=== PATIENT | male | born 1940 | race Caucasian/White ===

== ENCOUNTER 2022-06-05 14:54 | Inpatient (IN) ==
[2022-06-05 15:19] LABS: Basophils % 0.1 % (0.0-0.8); Hematocrit 33.9 VOL% (42.0-52.0); Hemoglobin 11.6 GM/DL (14.0-18.0); Immature Granulocytes % 0.6 %; Immature Granulocytes Absolute 0.06 #; Lymphocytes # 1.1 10*3/uL (1.4-4.0); Lymphocytes % 10.4 % (21.2-54.2); Mean Corpuscular HGB Conc 34.2 GM/DL (32-36); Mean Corpuscular Volume 88.1 FL (87-102); Mean Platelet Volume 10.1 FL (9.6-12.0); Monocytes # 0.7 10*3/uL (0.11-0.8); Monocytes % 6.6 % (1.7-12.7); Neutrophils % 82.3 % (38.7-73.9); Platelet Count 249 T/CUMM (130-400); Red Blood Count 3.85 MC/CUMM (3.8-5.5); Red Cell Distribution Width 15.3 % (9.3-17.3); White Blood Count 10.2 T/CUMM (4-12)
[2022-06-05 15:33] LABS: INR 1.1; PT Patient Result 12.3 SECS (10.5-12.0); Partial Thromboplastin Time 35.7 SECS (23.7-32.9)
[2022-06-05] MEDS ORDERED: SODIUM CHLORIDE 0.9% 1,000 ML IV STA (15:42)
[2022-06-05 15:56] LABS: Albumin 2.8 G/DL (3.4-5.0); Bilirubin,Total 0.7 MG/DL (0.20-1.00); Calcium 8.5 MG/DL (8.5-10.1); Osmolality,Calculated 292.1 MOS/KG (273-304); Potassium 2.7 MMOL/L (3.5-5.1); Total Protein 6.3 G/DL (6.4-8.2)
[2022-06-05 16:08] LABS: Glucose,Urine (UA) Negative (Negative); Ketones,Urine Negative (Negative); Nitrite,Urine Positive (Negative); Protein,Urine 30 mg/dL (Negative); Urine Appearance Slightly Cloudy (Clear); Urine Color Yellow (Yellow)
[2022-06-05 16:09] LABS: Bilirubin,Urine Negative (Negative); Blood, Urine Moderate mg/dL (Negative); Urine Urobilinogen 0.2 eU/dL (<2.0)
[2022-06-05 16:15] LABS: Bacteria,Urine Many /HPF (Few); Mucus,Urine Occasional /LPF (Occasional); RBC,Urine 27 /HPF (0-4); Renal Epithelial Cells,Urine Occasional /HPF (<1)
[2022-06-05 16:18] LABS: Urine Specific Gravity > 1.030 (1.001-1.035)
[2022-06-05] MEDS ORDERED: POTASSIUM CHLORIDE 20 MEQ TABLET PO STA (16:35)
[2022-06-05] MEDS ORDERED: cefTRIAXone 1,000 MG in SODIUM CHLORIDE 0.9% 100 ML IV STA (16:37)
[2022-06-05 16:48] LABS: Barbiturates Screen,Urine Negative (Negative); Benzodiazepines Screen,Urine Negative (Negative); Cannabinoid Screen,Urine Negative (Negative); Opiate Screen,Urine Positive (Negative); Phencyclidine Screen,Urine Negative (Negative)
[2022-06-05] MEDS ORDERED: SIMETHICONE CHEW 125 MG TABLET PO PRN (17:21)
[2022-06-05] MEDS ORDERED: CALCIUM CARBONATE CHEW 500 MG TABLET PO PRN (17:21)
[2022-06-05] MEDS ORDERED: ALUMINUM/MAGNES/SIMETH MAX STR 30 ML UDCUP PO PRN (17:21)
[2022-06-05] MEDS ORDERED: LACTULOSE 20 GM/30 ML UDCUP PO PRN (17:21)
[2022-06-05] MEDS ORDERED: ONDANSETRON 4 MG/2 ML VIAL IV PRN (17:21)
[2022-06-05] MEDS ORDERED: ALBUTEROL 2.5 MG/3 ML NEB RESP TX PRN (17:21)
[2022-06-05] MEDS ORDERED: GLUCAGON 1 MG VIAL IM PRN (17:21)
[2022-06-05] MEDS ORDERED: MAGNESIUM SULF RIDER 2 GM/50 ML PREMIX IV PRN (17:29)
[2022-06-05] MEDS ORDERED: MAGNESIUM SULF RIDER 4 GM/100 ML PREMIX IV PRN (17:29)
[2022-06-05] MEDS ORDERED: DEXTROSE 10% 250 ML BAG IV PRN (17:30)
[2022-06-05] MEDS: SODIUM CHLOR 0.9% KCL 40 MEQ 40 MEQ/1,000 ML BAG IV SCH (18:47)
[2022-06-05] MEDS: ACETAMINOPHEN 325 MG TABLET PO PRN (19:49)
[2022-06-05] MEDS: TAMSULOSIN 0.4 MG CAPSULE PO SCH (21:56)
[2022-06-06] MEDS: SODIUM CHLOR 0.9% KCL 40 MEQ 40 MEQ/1,000 ML BAG IV SCH (02:47)
[2022-06-06] MEDS: ACETAMINOPHEN 325 MG TABLET PO PRN ×3 (02:50→20:31)
[2022-06-06 03:21] LABS: Basophils % 0.2 % (0.0-0.8); Eosinophils % 0.3 % (0.00-10.9); Hematocrit 33.5 VOL% (42.0-52.0); Hemoglobin 10.9 GM/DL (14.0-18.0); Immature Granulocytes % 0.3 %; Immature Granulocytes Absolute 0.04 #; Lymphocytes # 1.7 10*3/uL (1.4-4.0); Lymphocytes % 14.7 % (21.2-54.2); Mean Corpuscular HGB Conc 32.5 GM/DL (32-36); Mean Platelet Volume 10.1 FL (9.6-12.0); Monocytes # 0.7 10*3/uL (0.11-0.8); Monocytes % 6.1 % (1.7-12.7); Neutrophils % 78.4 % (38.7-73.9); Platelet Count 208 T/CUMM (130-400); Red Blood Count 3.64 MC/CUMM (3.8-5.5); Red Cell Distribution Width 15.6 % (9.3-17.3); White Blood Count 11.8 T/CUMM (4-12)
[2022-06-06 03:50] LABS: CKMB % 1.03 %
[2022-06-06 03:54] LABS: Calcium 8.2 MG/DL (8.5-10.1); Osmolality,Calculated 295.6 MOS/KG (273-304); Potassium 3.8 MMOL/L (3.5-5.1); Risk Ratio 3.96; Thyroid Stimulating Hormone 0.922 uIU/ml (0.358-3.74); VLDL Cholesterol 23.8 MG/DL
[2022-06-06] MEDS ORDERED: ENOXAPARIN 40 MG/0.4 ML SYRINGE SUBCUT SCH (08:00)
[2022-06-06] MEDS: allopurinoL 100 MG TABLET PO SCH (10:07)
[2022-06-06] MEDS: CETIRIZINE 10 MG TABLET PO SCH (10:07)
[2022-06-06] MEDS: ZINC GLUCONATE 50 MG TABLET PO SCH (10:07)
[2022-06-06] MEDS: carvediloL 3.125 MG TABLET PO SCH ×2 (10:07→17:09)
[2022-06-06] MEDS: PANTOPRAZOLE 40 MG TABLET PO SCH (10:07)
[2022-06-06] MEDS: DILTIAZEM CD 120 MG CAPSULE PO SCH (10:08)
[2022-06-06] MEDS: ASCORBIC ACID 500 MG TABLET PO SCH ×2 (10:08→20:32)
[2022-06-06] MEDS: CHOLECALCIFEROL 1,000 UNIT TABLET PO SCH (10:08)
[2022-06-06] MEDS: APIXABAN 5 MG TABLET PO SCH ×2 (12:41→20:32)
[2022-06-06] MEDS: DEXAMETHASONE 4 MG/1 ML VIAL IV SCH (12:43)
[2022-06-06] MEDS ORDERED: REMDESIVIR 200 MG in SODIUM CHLORIDE 0.9% 210 ML IV ONE (13:00)
[2022-06-06] MEDS: LACTATED RINGERS 1,000 ML IV SCH (13:11)
[2022-06-06] MEDS: cefTRIAXone 1,000 MG in SODIUM CHLORIDE 0.9% 100 ML IV SCH (17:09)
[2022-06-06] MEDS: TAMSULOSIN 0.4 MG CAPSULE PO SCH (20:32)
[2022-06-07 05:44] LABS: Basophils % 0.1 % (0.0-0.8); Hemoglobin 11.2 GM/DL (14.0-18.0); Immature Granulocytes % 0.5 %; Immature Granulocytes Absolute 0.05 #; Lymphocytes # 1.2 10*3/uL (1.4-4.0); Lymphocytes % 10.6 % (21.2-54.2); Mean Corpuscular HGB Conc 32.9 GM/DL (32-36); Mean Corpuscular Volume 91.2 FL (87-102); Mean Platelet Volume 10.4 FL (9.6-12.0); Monocytes # 0.4 10*3/uL (0.11-0.8); Monocytes % 3.5 % (1.7-12.7); Neutrophils % 85.3 % (38.7-73.9); Platelet Count 197 T/CUMM (130-400); Red Blood Count 3.73 MC/CUMM (3.8-5.5); Red Cell Distribution Width 15.8 % (9.3-17.3); White Blood Count 11.1 T/CUMM (4-12)
[2022-06-07 07:11] LABS: Calcium 8.3 MG/DL (8.5-10.1); Potassium 3.9 MMOL/L (3.5-5.1)
[2022-06-07] MEDS: DEXAMETHASONE 4 MG/1 ML VIAL IV SCH (09:07)
[2022-06-07] MEDS: ZINC GLUCONATE 50 MG TABLET PO SCH (09:08)
[2022-06-07] MEDS: allopurinoL 100 MG TABLET PO SCH (09:08)
[2022-06-07] MEDS: DILTIAZEM CD 120 MG CAPSULE PO SCH (09:09)
[2022-06-07] MEDS: CHOLECALCIFEROL 1,000 UNIT TABLET PO SCH (09:10)
[2022-06-07] MEDS: PANTOPRAZOLE 40 MG TABLET PO SCH (09:11)
[2022-06-07] MEDS: carvediloL 3.125 MG TABLET PO SCH ×2 (09:11→17:15)
[2022-06-07] MEDS: APIXABAN 5 MG TABLET PO SCH ×2 (09:11→22:03)
[2022-06-07] MEDS: CETIRIZINE 10 MG TABLET PO SCH (09:12)
[2022-06-07] MEDS: ACETAMINOPHEN 325 MG TABLET PO PRN ×2 (09:24→22:03)
[2022-06-07] MEDS: ASCORBIC ACID 500 MG TABLET PO SCH ×2 (10:05→22:04)
[2022-06-07] MEDS: LACTATED RINGERS 1,000 ML IV SCH (10:05)
[2022-06-07] MEDS: REMDESIVIR 100 MG in SODIUM CHLORIDE 0.9% 100 ML IV SCH (14:05)
[2022-06-07] MEDS: AZITHROMYCIN 250 MG TABLET PO SCH (15:39)
[2022-06-07] MEDS: VANCOMYCIN INJ 1,000 MG in SODIUM CHLORIDE 0.9% 250 ML IV SCH (17:15)
[2022-06-07] MEDS: cefTRIAXone 1,000 MG in SODIUM CHLORIDE 0.9% 100 ML IV SCH (18:20)
[2022-06-07] MEDS: TAMSULOSIN 0.4 MG CAPSULE PO SCH (22:03)
[2022-06-08 06:55] LABS: Basophils % 0.1 % (0.0-0.8); Hematocrit 32.6 VOL% (42.0-52.0); Hemoglobin 10.7 GM/DL (14.0-18.0); Immature Granulocytes % 0.8 %; Immature Granulocytes Absolute 0.07 #; Lymphocytes # 1.1 10*3/uL (1.4-4.0); Lymphocytes % 11.9 % (21.2-54.2); Mean Corpuscular HGB Conc 32.8 GM/DL (32-36); Mean Corpuscular Volume 91.1 FL (87-102); Mean Platelet Volume 10.9 FL (9.6-12.0); Monocytes # 0.3 10*3/uL (0.11-0.8); Monocytes % 3.7 % (1.7-12.7); Neutrophils % 83.5 % (38.7-73.9); Platelet Count 221 T/CUMM (130-400); Red Blood Count 3.58 MC/CUMM (3.8-5.5); White Blood Count 9.2 T/CUMM (4-12)
[2022-06-08 07:30] LABS: Calcium 8.4 MG/DL (8.5-10.1); Osmolality,Calculated 284.4 MOS/KG (273-304); Potassium 3.9 MMOL/L (3.5-5.1)
[2022-06-08] MEDS: CETIRIZINE 10 MG TABLET PO SCH (08:08)
[2022-06-08] MEDS: DILTIAZEM CD 120 MG CAPSULE PO SCH (08:08)
[2022-06-08] MEDS: AZITHROMYCIN 250 MG TABLET PO SCH (08:08)
[2022-06-08] MEDS: ZINC GLUCONATE 50 MG TABLET PO SCH (08:08)
[2022-06-08] MEDS: CHOLECALCIFEROL 1,000 UNIT TABLET PO SCH (08:08)
[2022-06-08] MEDS: APIXABAN 5 MG TABLET PO SCH ×2 (08:08→21:18)
[2022-06-08] MEDS: carvediloL 3.125 MG TABLET PO SCH ×2 (08:09→17:30)
[2022-06-08] MEDS: ASCORBIC ACID 500 MG TABLET PO SCH ×2 (08:09→21:17)
[2022-06-08] MEDS: DEXAMETHASONE 4 MG/1 ML VIAL IV SCH (08:09)
[2022-06-08] MEDS: PANTOPRAZOLE 40 MG TABLET PO SCH (08:09)
[2022-06-08] MEDS: allopurinoL 100 MG TABLET PO SCH (08:09)
[2022-06-08] MEDS: VANCOMYCIN INJ 1,000 MG in SODIUM CHLORIDE 0.9% 250 ML IV SCH (11:14)
[2022-06-08] MEDS: REMDESIVIR 100 MG in SODIUM CHLORIDE 0.9% 100 ML IV SCH (13:52)
[2022-06-08] MEDS: NICOTINE 14 MG/24 HR PATCH TRANSDERM SCH (14:12)
[2022-06-08 15:08] LABS: Folate 12.97 NG/ML (5.38-24.0)
[2022-06-08 16:22] LABS: % Iron Saturation 16.9 % (18-50)
[2022-06-08] MEDS: cefTRIAXone 1,000 MG in SODIUM CHLORIDE 0.9% 100 ML IV SCH (17:31)
[2022-06-08] MEDS: TAMSULOSIN 0.4 MG CAPSULE PO SCH (21:17)
[2022-06-08] MEDS: ZALEPLON 5 MG CAPSULE PO PRN (22:24)
[2022-06-09] MEDS: VANCOMYCIN INJ 1,000 MG in SODIUM CHLORIDE 0.9% 250 ML IV SCH ×2 (03:00→21:59)
[2022-06-09 05:32] LABS: Basophils % 0.1 % (0.0-0.8); Hematocrit 32.9 VOL% (42.0-52.0); Hemoglobin 10.9 GM/DL (14.0-18.0); Immature Granulocytes % 1.4 %; Lymphocytes % 14.3 % (21.2-54.2); Mean Corpuscular HGB Conc 33.1 GM/DL (32-36); Mean Corpuscular Volume 89.9 FL (87-102); Mean Platelet Volume 10.5 FL (9.6-12.0); Monocytes # 0.3 10*3/uL (0.11-0.8); Monocytes % 4.7 % (1.7-12.7); Neutrophils % 79.5 % (38.7-73.9); Platelet Count 243 T/CUMM (130-400); Red Blood Count 3.66 MC/CUMM (3.8-5.5); Red Cell Distribution Width 16.1 % (9.3-17.3)
[2022-06-09 05:46] LABS: Calcium 8.3 MG/DL (8.5-10.1); Osmolality,Calculated 285.5 MOS/KG (273-304); Potassium 3.9 MMOL/L (3.5-5.1)
[2022-06-09 05:55] LABS: Lymphocytes 13 % (20-55); Platelet Estimate Adequate; Total Cells Counted 100
[2022-06-09] MEDS: CHOLECALCIFEROL 1,000 UNIT TABLET PO SCH (09:20)
[2022-06-09] MEDS: carvediloL 3.125 MG TABLET PO SCH ×2 (09:21→18:02)
[2022-06-09] MEDS: ASCORBIC ACID 500 MG TABLET PO SCH ×2 (09:21→20:39)
[2022-06-09] MEDS: CETIRIZINE 10 MG TABLET PO SCH (09:21)
[2022-06-09] MEDS: allopurinoL 100 MG TABLET PO SCH (09:21)
[2022-06-09] MEDS: APIXABAN 5 MG TABLET PO SCH ×2 (09:21→20:39)
[2022-06-09] MEDS: DEXAMETHASONE 4 MG/1 ML VIAL IV SCH (09:22)
[2022-06-09] MEDS: PANTOPRAZOLE 40 MG TABLET PO SCH (09:22)
[2022-06-09] MEDS: AZITHROMYCIN 250 MG TABLET PO SCH (09:22)
[2022-06-09] MEDS: DILTIAZEM CD 120 MG CAPSULE PO SCH (09:22)
[2022-06-09] MEDS: ZINC GLUCONATE 50 MG TABLET PO SCH (09:22)
[2022-06-09] MEDS: NICOTINE 14 MG/24 HR PATCH TRANSDERM SCH (09:26)
[2022-06-09] MEDS ORDERED: MAGNESIUM SULF RIDER 2 GM/50 ML PREMIX IV ONE (14:33)
[2022-06-09] MEDS: cefTRIAXone 1,000 MG in SODIUM CHLORIDE 0.9% 100 ML IV SCH (18:03)
[2022-06-09] MEDS: TAMSULOSIN 0.4 MG CAPSULE PO SCH (20:39)
[2022-06-09] MEDS: ZALEPLON 5 MG CAPSULE PO PRN (20:39)
[2022-06-10 05:18] LABS: Hematocrit 33.2 VOL% (42.0-52.0); Hemoglobin 10.8 GM/DL (14.0-18.0); Immature Granulocytes % 2.5 %; Immature Granulocytes Absolute 0.15 #; Lymphocytes % 16.3 % (21.2-54.2); Mean Corpuscular HGB Conc 32.5 GM/DL (32-36); Mean Corpuscular Volume 90.7 FL (87-102); Mean Platelet Volume 10.8 FL (9.6-12.0); Monocytes # 0.3 10*3/uL (0.11-0.8); Monocytes % 5.3 % (1.7-12.7); Neutrophils % 75.9 % (38.7-73.9); Platelet Count 255 T/CUMM (130-400); Red Blood Count 3.66 MC/CUMM (3.8-5.5); Red Cell Distribution Width 16.1 % (9.3-17.3); White Blood Count 5.9 T/CUMM (4-12)
[2022-06-10 05:32] LABS: Calcium 8.2 MG/DL (8.5-10.1); Osmolality,Calculated 287.3 MOS/KG (273-304); Potassium 3.8 MMOL/L (3.5-5.1)
[2022-06-10] MEDS ORDERED: VANCOMYCIN INJ 1,000 MG in SODIUM CHLORIDE 0.9% 250 ML IV SCH (09:00)
[2022-06-10] MEDS: APIXABAN 5 MG TABLET PO SCH ×2 (09:08→21:46)
[2022-06-10] MEDS: ASCORBIC ACID 500 MG TABLET PO SCH ×2 (09:09→21:46)
[2022-06-10] MEDS: allopurinoL 100 MG TABLET PO SCH (09:09)
[2022-06-10] MEDS: CHOLECALCIFEROL 1,000 UNIT TABLET PO SCH (09:09)
[2022-06-10] MEDS: carvediloL 3.125 MG TABLET PO SCH ×2 (09:09→17:34)
[2022-06-10] MEDS: CETIRIZINE 10 MG TABLET PO SCH (09:09)
[2022-06-10] MEDS: AZITHROMYCIN 250 MG TABLET PO SCH (09:09)
[2022-06-10] MEDS: PANTOPRAZOLE 40 MG TABLET PO SCH (09:09)
[2022-06-10] MEDS: DILTIAZEM CD 120 MG CAPSULE PO SCH (09:10)
[2022-06-10] MEDS: ZINC GLUCONATE 50 MG TABLET PO SCH (09:10)
[2022-06-10] MEDS: DEXAMETHASONE 4 MG/1 ML VIAL IV SCH (09:10)
[2022-06-10] MEDS: NICOTINE 14 MG/24 HR PATCH TRANSDERM SCH (09:11)
[2022-06-10] MEDS: cefTRIAXone 1,000 MG in SODIUM CHLORIDE 0.9% 100 ML IV SCH (17:33)
[2022-06-10] MEDS: ZALEPLON 5 MG CAPSULE PO PRN (21:46)
[2022-06-10] MEDS: TAMSULOSIN 0.4 MG CAPSULE PO SCH (21:46)
[2022-06-11 06:12] LABS: Basophils % 0.2 % (0.0-0.8); Hematocrit 34.4 VOL% (42.0-52.0); Hemoglobin 11.2 GM/DL (14.0-18.0); Immature Granulocytes % 3.2 %; Immature Granulocytes Absolute 0.21 #; Lymphocytes % 15.3 % (21.2-54.2); Mean Corpuscular HGB Conc 32.6 GM/DL (32-36); Mean Corpuscular Volume 90.1 FL (87-102); Mean Platelet Volume 10.7 FL (9.6-12.0); Monocytes # 0.4 10*3/uL (0.11-0.8); Monocytes % 6.2 % (1.7-12.7); NRBC # 0.02 10*3/uL; Neutrophils % 75.1 % (38.7-73.9); Platelet Count 271 T/CUMM (130-400); Red Blood Count 3.82 MC/CUMM (3.8-5.5); Red Cell Distribution Width 15.9 % (9.3-17.3); White Blood Count 6.6 T/CUMM (4-12)
[2022-06-11 06:26] LABS: Calcium 8.5 MG/DL (8.5-10.1); Osmolality,Calculated 290.3 MOS/KG (273-304); Potassium 3.5 MMOL/L (3.5-5.1)
[2022-06-11] MEDS: allopurinoL 100 MG TABLET PO SCH (09:41)
[2022-06-11] MEDS: NICOTINE 14 MG/24 HR PATCH TRANSDERM SCH (09:41)
[2022-06-11] MEDS: CETIRIZINE 10 MG TABLET PO SCH (09:42)
[2022-06-11] MEDS: ASCORBIC ACID 500 MG TABLET PO SCH (09:42)
[2022-06-11] MEDS: ZINC GLUCONATE 50 MG TABLET PO SCH (09:42)
[2022-06-11] MEDS: AZITHROMYCIN 250 MG TABLET PO SCH (09:42)
[2022-06-11] MEDS: APIXABAN 5 MG TABLET PO SCH (09:42)
[2022-06-11] MEDS: carvediloL 3.125 MG TABLET PO SCH (09:42)
[2022-06-11] MEDS: CHOLECALCIFEROL 1,000 UNIT TABLET PO SCH (09:42)
[2022-06-11] MEDS: PANTOPRAZOLE 40 MG TABLET PO SCH (09:42)
[2022-06-11] MEDS: DILTIAZEM CD 120 MG CAPSULE PO SCH (09:43)
[2022-06-11] MEDS: DEXAMETHASONE 4 MG/1 ML VIAL IV SCH (09:43)
[2022-06-11 11:19] VITALS: BP 138/63
== END 2022-06-11 14:00 | disposition swing bed (61) | DRG 177 ==
LOC: EDUNIT# → N.ED 14:54 → SUATTDRO 17:21 → N.EDINP 17:21 → N.3E 18:09
PROVIDERS: ADMIT Internal Medicine; ATTEND Internal Medicine